=== PATIENT | female | born 1990 ===

== ENCOUNTER 2021-11-29 12:15 | Inpatient (IN) | payer OTHER ==
[~2021-11-29] VITALS: Ht 170.2 cm; Wt 3.2 kg
[2021-12-14] MEDS ORDERED: PRENATAL TABLE1 EAC3 PO (16:25)
[2021-12-15] MEDS ORDERED: FAMOTIDINE20 MG (13:31)
== END 2021-12-18 15:45 | disposition home or self-care (01) | DRG 788 ==
LOC: SURG-SUITE 12-14 14:58 → O/R 12-14 14:58 → LDR 12-14 14:58 → OB/GYN 12-15 12:15 → O/R 12-15 14:02 → SURG-SUITE 12-15 16:14
PROVIDERS: ADMIT Obstetrics & Gynecology Maternal & Fetal Medicine; ATTEND Obstetrics & Gynecology Maternal & Fetal Medicine
PROC: 10D00Z1 Extraction of Products of Conception, Low, Open Approach (ICD-10-PCS; principal; 2021-12-14)
PROC: 3E033VJ Introduction of Other Hormone into Peripheral Vein, Percutaneous Approach (ICD-10-PCS; 2021-12-14)
PROC: 4A1HXCZ Monitoring of Products of Conception, Cardiac Rate, External Approach (ICD-10-PCS; 2021-12-14)
DX: O61.0 Failed medical induction of labor (principal); Z3A.40 40 weeks gestation of pregnancy; Z37.0 Single live birth; Z20.822 Contact with and (suspected) exposure to COVID-19

== ENCOUNTER 2021-12-10 11:11 | Outpatient (CLI) | payer OTHER | END 2021-12-10 11:58 | disposition home or self-care (01) | LOC: NST 11:11 | PROVIDERS: ATTEND Obstetrics & Gynecology | DX: Z34.83 Encounter for supervision of other normal pregnancy, third trimester (principal) ==